=== PATIENT | female | born 1995 | race Caucasian/White ===

== ENCOUNTER 2020-01-11 10:42 | Outpatient (CLI) | payer BC, SELFPAY ==
--- NOTE | ~2020-01-11 | US_ITS ---
EXAMINATION: US pelvic complete w TV DATE: 01/11/2020 12:01 INDICATION: Pelvic pain TECHNIQUE: Multiple transabdominal and endovaginal sonographic images of the pelvis were obtained. COMPARISON: 08/22/2017 FINDINGS: The uterus measures 8.8 x 5.5 x 6.1 cm. section scar along the anterior lower uterine segmen t. Linear shadowing IUD within the endometrial complex which measures 7 mm in thickness. The right ov teri measures 4.3 x 2.2 x 2.6 cm. There is approximately 1.9 x 1.5 x 1.4 cm isoechoic lesion with cent ral 11 mm hypoechoic region suggesting complex cyst, possibly hemorrhagic or corpus luteum cyst. The left ovary measures 3.3 x 2.1 x 2.6 cm. After flow identified in both ovaries on color Doppler. There is a small amount of anechoic likely physiologic free fluid in the cul-de-sac. IMPRESSION: 1. IUD within the normal endometrial canal. 2. 1.9 cm likely complex cystic right ovarian lesion could represent a hemorrhagic or corpus luteum c yst. Consider follow-up ultrasound in 6-12 weeks to document resolution. 3. Small amount of likely physiologic free fluid in the cul-de-sac. Reviewed, dictated and finalized at location [facility]. IMPRESSION: 1. IUD within the normal endometrial canal. 2. 1.9 cm likely complex cystic right ovarian lesion could represent a hemorrha gic or corpus luteum cyst. Consider follow-up ultrasound in 6-12 weeks to docum ent resolution. 3. Small amount of likely physiologic free fluid in the cul-de-sac.
== END 2020-01-11 10:43 | disposition home or self-care (01) ==
PROVIDERS: PCP Physician Assistant; Visit Provider Obstetrics & Gynecology
DX: R10.2 Pelvic and perineal pain (principal); Z97.5 Presence of (intrauterine) contraceptive device; N83.201 Unspecified ovarian cyst, right side
CPT/HCPCS: 76830; 76856

== ENCOUNTER → 2020-10-19 00:11 | Outpatient (CLI) | payer BC, SELFPAY ==
[2020-10-19 19:32] LABS: SARS-CoV-2 RNA PCR Negative
== END ==
PROVIDERS: PCP Physician Assistant; Visit Provider Surgery
DX: Z01.812 Encounter for preprocedural laboratory examination (principal); Z20.822 Contact with and (suspected) exposure to COVID-19
CPT/HCPCS: C9803; U0003; U0005

== ENCOUNTER 2020-10-22 01:40 | Day surgery (SDC) | payer BC, SELFPAY ==
[2020-10-07 13:14] VITALS: BMI 27.5
[2020-10-22] MEDS: LACTATED RINGERS 1,000 ML 150 ML IV CONT (06:33)
[2020-10-22 06:34] VITALS: BP 113/66; PULSE 73; RESP 16; TEMP 36.9; O2SAT 98; BMI 27.2
--- NOTE | 2020-10-22 06:52 | WPDANESEPPF ---
Anes - Initial Pre Proc Eval Procedure: Operation Date: 10/22/20 07:30 Proposed Procedures p Colonoscopy - Yohannes Barrera DO Date/Time: 10/22/20 06:52 Surgeon: Yohannes Barrera DO Pre Op Diagnosis: constipation Patient Data Age: 25 Gender: F Height: 5 ft 5 in Weight: 74.2 kg Last Vital Signs Temp 36.9 C 10/22/20 06:34 Pulse 73 10/22/20 06:34 Resp 16 10/22/20 06:34 BP 113/66 10/22/20 06:34 Pulse Ox 98 10/22/20 06:34 Allergies Allergy/AdvReac Type Severity Reaction Status Date / Time ciprofloxacin Allergy Unknown Nausea and Verified 10/22/20 06:34 Vomiting doxycycline Allergy Unknown Hives Verified 10/22/20 06:34 Home Medications Medication Instructions Recorded Confirmed Type levonorgestrel 20 mcg/24 hours (6 1 device INTRAUTERINE ONCE 07/29/20 10/22/20 History yrs) 52 mg intrauterine device Patient hx anesthesia problems: none Family hx anesthesia problems: other (slow to awaken) [facility] Past Medical History Medical History Asthma Depression History of kidney stones Surgical History Surgical History History of delivery History of hemorrhoidectomy Family History Family History Mother Family history of thyroid disease Patient's mother is in good health Family history of malignant neoplasm of thyroid Father Patient's father is in good health Grandparent Cerebrovascular accident Diabetes mellitus Hypertension Other Family history of allergic disorder Social History Social History Smoking packs per day: 1 Smoking cigarettes per day: 20.0 Years smoked: 2 Smoking pack-years: 2.00 Smoking status: Former smoker Tobacco type: cigarettes Alcohol intake: never Substance use: never Substance use type: does not use Living arrangements: with family 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 Questions were solicited and answers provided to the satisfaction of the patient/family/POA.
--- NOTE | 2020-10-22 07:32 | WPDHPUPDATE1 ---
History and Physical Update Update Date/Time: 10/22/20 07:32 History and Physical has been reviewed, including an updated exam of the patient. There are NO changes in the patient's condition. Risks, benefits, and alternatives have been discussed and questions answered. Patient agrees to proceed with procedure.
[2020-10-22 07:52] VITALS: BP 83/47; PULSE 70; RESP 18; O2SAT 98
[2020-10-22 08:02] VITALS: BP 89/55; PULSE 68; RESP 18; O2SAT 97
[2020-10-22 08:12] VITALS: BP 105/60; PULSE 62; RESP 20; O2SAT 99
[2020-10-22 08:22] VITALS: BP 112/78; PULSE 68; RESP 22; O2SAT 99
== END 2020-10-22 08:33 | disposition home or self-care (01) ==
PROVIDERS: PCP Physician Assistant; Visit Provider Surgery
PROC: 0DJD8ZZ Inspection of Lower Intestinal Tract, Via Natural or Artificial Opening Endoscopic (ICD-10-PCS; CPT 45378; principal; 2020-10-22 07:30)
DX: K62.89 Other specified diseases of anus and rectum (principal); K59.00 Constipation, unspecified; Z87.891 Personal history of nicotine dependence
CPT/HCPCS: 45378; J2704; J7120

== ENCOUNTER 2020-12-11 17:09 | Outpatient (CLI) | payer BC, SELFPAY ==
--- NOTE | ~2020-12-11 | US_ITS ---
US breast RT limited DATE: 12/11/2020 17:26 INDICATION: Right breast pain, lump, 9:00 area TECHNIQUE: Real-time imaging of the right breast targeted to 9:00 area complaint COMPARISON: None FINDINGS: Dense breast tissue is evident in the area of clinical complaint. No suspicious mass or sha dowing, cyst or other significant sonographic finding is noted. IMPRESSION: BI-RADS Category 1: Negative Reviewed, dictated and finalized at [facility]. Reviewed, dictated and finalized at location [facility].
== END 2020-12-11 17:10 | disposition home or self-care (01) ==
PROVIDERS: PCP Physician Assistant; Visit Provider Student in an Organized Health Care Education/Training Program
DX: N64.4 Mastodynia (principal); N63.10 Unspecified lump in the right breast, unspecified quadrant
CPT/HCPCS: 76642

== ENCOUNTER → 2021-10-07 00:46 | Outpatient (CLI) | payer OTHER, SELFPAY ==
[2021-10-07 12:56] LABS: SARS-CoV-2 RNA PCR Negative
== END ==
PROVIDERS: PCP Physician Assistant; Visit Provider Physician Assistant
DX: R68.89 Other general symptoms and signs (principal); Z20.822 Contact with and (suspected) exposure to COVID-19
CPT/HCPCS: C9803; U0003; U0005

== ENCOUNTER 2023-01-01 18:27 | Emergency (ER) | payer OTHER, SELFPAY ==
[2023-01-01 18:52] VITALS: BP 121/69; PULSE 88; RESP 18; TEMP 36.8; O2SAT 100
--- NOTE | 2023-01-01 20:17 | ED.GENADULT ---
HPI - General Adult General Chief complaint: Abdominal Pain Stated complaint: bowel obstruction Time Seen by Provider: 01/01/23 19:40 History of Present Illness HPI narrative: Patient is a 27-year-old female who presents the emergency department with chief complaint of abdominal pain and constipation. Patient reports louann for the last 3 days she has not been able to have a bowel movement patient reports she has taken p.o. medications try to have a bowel movement reports she gave herself an enema. The patient reports she feels as though she needs to have a bowel movement just cannot get things to move. t Related Data Home Medications Medication Instructions Recorded Confirmed levonorgestrel 21 mcg/24 hours (8 1 device intrauterine ONCE 07/29/20 07/26/22 yrs) 52 mg intrauterine device (Mirena) Allergies Allergy/AdvReac Type Severity Reaction Status Date / Time ciprofloxacin Allergy Unknown Nausea and Verified 01/01/23 19:45 Vomiting doxycycline Allergy Unknown Hives Verified 01/01/23 19:45 Review of Systems Review of Systems: A 10 system review of systems was completed on the patient and is negative except for what is stated in the HPI. Nursing and ancillary documentation was reviewed. [facility] Past Medical History Medical History Asthma Depression History of kidney stones Surgical History Surgical History History of delivery History of hemorrhoidectomy Family History Family History Mother Family history of thyroid disease Patient's mother is in good health Family history of malignant neoplasm of thyroid Father Patient's father is in good health Grandparent Cerebrovascular accident Diabetes mellitus Hypertension Other Family history of allergic disorder Social History Social History Smoking packs per day: 1 Smoking cigarettes per day: 20.0 Years smoked: 2 Smoking pack-years: 2.00 Smoking status: Former smoker Tobacco type: cigarettes Alcohol intake: never Alcohol use details: rare Substance use: never Substance use type: does not use Lack of Transportation: No Lack of Food: Never True Current Housing: I Have Housing Concerned About Future Housing: No Difficulty Paying Gas/Electric Bills: No Difficulty Paying for Meds: No Currently Unemployed: No Education: Trade/Vocational Certificate Difficulty w/ Childcare or Family Care: No Living arrangements: with family Occupation/Education: occupation 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 HEAD: Normocephalic, atraumatic. EYES: PERRLA and EOMI. ENT: Nares clear, no rhinorrhea or epistaxis. Mucous membranes moist. NECK: Supple. CHEST: Clear to auscultation. No respiratory distress. HEART: Regular rate and rhythm. No murmur heard. Normal peripheral pulses. ABDOMEN: Soft, minimal tenderness to palpation, nondistended, normal active bowel sounds. : External hemorrhoids present on exam, large amount of stool in the rectal vault stool was manually broken up on digital exam EXTREMITIES: Normal range of motion. No edema. SKIN: Warm, dry, no rash. NEURO: No focal deficits. Alert and oriented x3. PSYCH: Normal mood and affect. Course Vital Signs Vital signs: Vital Signs Temperature 36.8 C 01/01/23 18:52 Pulse Rate 88 01/01/23 18:52 Respiratory Rate 18 01/01/23 18:52 Blood Pressure 121/69 01/01/23 18:52 Pulse Oximetry 100 01/01/23 18:52 Oxygen Delivery Room Air 01/01/23 18:52 Temperature 36.8 C 01/01/23 18:52 Pulse Rate 82 01/01/23 21:15 Respiratory Rate 18 0
--- NOTE | 2023-01-01 20:23 | PC.NURSE ---
Pt states shes unable to provide urine sample at this time, pt to try to provide sample in a few minutes .
[2023-01-01 20:26] LABS: Basophils Percent Auto 0.3 % (0.2-1.2); Eosinophils Percent Auto 0.2 % (0-4.4); Hematocrit 40.8 % (37.0-47.0); Hemoglobin 14.1 g/dL (12.0-15.0); Immature Granulocyte Absolute 0.03 K/mm3 (0.00-0.031); Immature Granulocyte Percent A 0.2 % (0-0.5); Lymphocytes Absolute Auto 1.27 K/mm3 (0.9-3.2); Lymphocytes Percent Auto 10.1 % (18.3-44.2); Mean Corpuscular HGB Conc 34.6 g/dl (32-36); Mean Corpuscular Hemoglobin 33.6 pg (26-34); Mean Corpuscular Volume 97.1 fl (80-100); Mean Platelet Volume 11.4 fl (7.4-10.4); Monocytes Absolute Auto 0.9 K/mm3 (0.1-0.6); Neutrophils Absolute Auto 10.3 K/mm3 (1.3-6.7); Neutrophils Percent Auto 82.2 % (45.5-73.1); Platelet Count Result 169 k/mm3 (150-375); White Blood Count 12.5 K/mm3 (4.5-10.0)
[2023-01-01 20:41] LABS: Alanine Aminotransferase 30 U/L (6-35); Albumin Level 4.6 g/dL (3.5-5.1); Alkaline Phosphatase 75 U/L (38-126); Anion Gap 9 mmol/L (8-16); Aspartate Amino Transferase 27 U/L (14-36); Bilirubin,Total 0.7 mg/dL (0.2-1.3); Blood Urea Nitrogen 8 mg/dL (7-17); Calcium 8.9 mg/dL (8.4-10.2); Carbon Dioxide 25 mmol/L (22-30); Chloride 105 mmol/L (98-107); Estimated CRCL calculation 149 ml/min; Estimated Glomerular Filt Rate > 60; Glucose 94 mg/dL (65-110); Lipase 65 U/L (23-300); Potassium 3.7 mmol/L (3.4-5.0); Sodium 139 mmol/L (137-145)
[2023-01-01 21:15] VITALS: BP 128/77; PULSE 82; RESP 18; O2SAT 99
--- NOTE | 2023-01-01 21:28 | PC.NURSE ---
Pt tolerated Enema well, pt had large BM after administration. Pt verbalized pain relief after Bm.
--- NOTE | 2023-01-01 21:29 | PC.NURSE ---
Pt urinated during administration of enema and this RN was unable to collect. CT and EDP Leena notified of test and U/A delay.
[2023-01-01 21:57] VITALS: BP 136/86; PULSE 83; RESP 16; O2SAT 100
== END 2023-01-01 21:58 | disposition home or self-care (01) ==
PROVIDERS: Emergency Medicine; Emergency Provider Emergency Medicine; PCP Physician Assistant
DX: K56.41 Fecal impaction (principal); J45.909 Unspecified asthma, uncomplicated; Z87.442 Personal history of urinary calculi; Z97.5 Presence of (intrauterine) contraceptive device
CPT/HCPCS: 36415; 80053; 83690; 85025; 99283

== ENCOUNTER 2023-08-08 09:54 | Emergency (ER) | payer OTHER, SELFPAY ==
[2023-08-08 10:16] VITALS: BP 129/79; PULSE 99; RESP 20; TEMP 36.5; O2SAT 100
[2023-08-08 10:46] LABS: Basophils Percent Auto 0.2 % (0.2-1.2); Eosinophils Percent Auto 0.9 % (0-4.4); Hematocrit 41.9 % (37.0-47.0); Lymphocytes Absolute Auto 1.05 K/mm3 (0.9-3.2); Lymphocytes Percent Auto 24.5 % (18.3-44.2); Mean Corpuscular HGB Conc 33.4 g/dl (32-36); Mean Corpuscular Volume 98.8 fl (80-100); Mean Platelet Volume 11.4 fl (7.4-10.4); Monocytes Absolute Auto 0.5 K/mm3 (0.1-0.6); Neutrophils Absolute Auto 2.7 K/mm3 (1.3-6.7); Neutrophils Percent Auto 63.4 % (45.5-73.1); Platelet Count Result 146 k/mm3 (150-375); Red Blood Count 4.24 M/mm3 (4.2-5.4); Red Cell Distribution Width 11.9 % (11.5-14.5); White Blood Count 4.3 K/mm3 (4.5-10.0)
[2023-08-08 10:51] LABS: Appearance Urine Cloudy (Clear); Bacteria Urine 1+ /hpf; Bilirubin Urine Negative (Negative); Blood Urine 2+ (Negative); Color Urine Dark Yellow (Yellow); Glucose Urine UA Negative (Negative); Ketones Urine Negative (Negative); Leukocyte Esterase Ur 1+ LEU/UL (Negative); Nitrate Urine Negative (Negative); Non Pathogenic Casts 0-2; Protein Urine Trace mg/dL (Negative); Squamous Epithelial Cell Urine Moderate /hpf (Few); WBC Urine 21-50 /hpf; pH Urine 5.5 (5.0-9.0)
[2023-08-08 11:00] LABS: Alanine Aminotransferase 16 U/L (6-35); Albumin Level 4.4 g/dL (3.5-5.1); Alkaline Phosphatase 59 U/L (38-126); Anion Gap 7 mmol/L (8-16); Aspartate Amino Transferase 21 U/L (14-36); Bilirubin,Total 0.8 mg/dL (0.2-1.3); Blood Urea Nitrogen 7 mg/dL (7-17); Calcium 8.6 mg/dL (8.4-10.2); Carbon Dioxide 26 mmol/L (22-30); Chloride 104 mmol/L (98-107); Estimated CRCL calculation 143 ml/min; Estimated Glomerular Filt Rate > 60; Glucose 93 mg/dL (65-110); Lipase 56 U/L (23-300); Potassium 3.5 mmol/L (3.4-5.0); Sodium 137 mmol/L (137-145)
[2023-08-08 11:01] LABS: Add Urine Microscopic? YES
--- NOTE | 2023-08-08 12:49 | ED.ABDPAIN ---
HPI - Abdominal Pain General Chief Complaint: Abdominal Pain Stated Complaint: abd pain/n/v/d Time Seen by Provider: 08/08/23 12:01 History of Present Illness HPI narrative: Patient is a 28-year-old female presenting with abdominal pain. Patient states that she has been having intermittent upper abdominal pain for the last week. States that the abdominal pain has actually improved and now she just has lower back soreness. She had an episode of diarrhea yesterday and has been nauseated so she called her doctor who told her to come to the ER. States that currently she just feels generally unwell. No dysuria or hematuria. No vomiting, fevers. Denies further complaints. Related Data Allergies Allergy/AdvReac Type Severity Reaction Status Date / Time ciprofloxacin Allergy Unknown Nausea and Verified 08/08/23 12:21 Vomiting doxycycline Allergy Unknown Hives Verified 08/08/23 12:21 Review of Systems Review of Systems: All systems reviewed & are unremarkable except as noted in HPI and below PMFSH Past Medical History Medical History Asthma Depression History of kidney stones Surgical History Surgical History History of delivery History of hemorrhoidectomy Family History Family History Mother Family history of thyroid disease Patient's mother is in good health Family history of malignant neoplasm of thyroid Father Patient's father is in good health Grandparent Cerebrovascular accident Diabetes mellitus Hypertension Other Family history of allergic disorder Social History Social History Smoking packs per day: 1 Smoking cigarettes per day: 20.0 Years smoked: 2 Smoking pack-years: 2.00 Smoking status: Former smoker Tobacco type: cigarettes Alcohol intake: never Alcohol use details: rare Substance use: never Substance use type: does not use Lack of Transportation: No Lack of Food: Never True Current Housing: I Have Housing Concerned About Future Housing: No Difficulty Paying Gas/Electric Bills: No Difficulty Paying for Meds: No Currently Unemployed: No Education: Trade/Vocational Certificate Difficulty w/ Childcare or Family Care: No Living arrangements: with family Occupation/Education: occupation 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 HEAD: Normocephalic, atraumatic. EYES: PERRLA and EOMI. ENT: Mucous membranes moist. NECK: Supple. CHEST: Clear to auscultation. No respiratory distress. HEART: Regular rate and rhythm ABDOMEN: Soft, nontender, nondistended; no CVA tenderness EXTREMITIES: Normal range of motion. SKIN: Warm, dry, no rash. NEURO: No focal deficits. Alert and oriented x3. PSYCH: Normal mood and affect. Course Vital Signs Vital signs: Vital Signs Temperature 97.7 F 08/08/23 10:16 Pulse Rate 99 08/08/23 10:16 Respiratory Rate 20 08/08/23 10:16 Blood Pressure 129/79 08/08/23 10:16 Pulse Oximetry 100 08/08/23 10:16 Oxygen Delivery Room Air 08/08/23 10:16 Temperature 97.7 F 08/08/23 10:16 Pulse Rate 99 08/08/23 10:16 Respiratory Rate 20 08/08/23 10:16 Blood Pressure 129/79 08/08/23 10:16 Pulse Oximetry 100 08/08/23 10:16 Oxygen Delivery Room Air 08/08/23 10:16 MDM - Abdominal Pain MDM Narrative Medical decision making narrative: 28-year-old female presenting with lower flank pain, diarrhea, nausea. Vitals are stable. Exam unremarkable. Abdomen is soft and benign. Patient is well-appearing. Blood work is unremarkable. UA is concerning for UTI. Consistent with her symptoms of lower flank pain,
== END 2023-08-08 13:19 | disposition home or self-care (01) ==
PROVIDERS: Emergency Medicine; Emergency Provider Emergency Medicine; PCP Physician Assistant
DX: N39.0 Urinary tract infection, site not specified (principal); J45.909 Unspecified asthma, uncomplicated; F32.A Depression, unspecified; Z87.442 Personal history of urinary calculi
CPT/HCPCS: 36415; 80053; 81001; 81025; 83690; 85025; 87086; 99283